=== PATIENT | female | born 1995 | race Two or more races ===

== ENCOUNTER 2020-12-03 02:10 | Inpatient (IN) | payer OTHER ==
[~2020-12-03] VITALS: Ht 152.4 cm; Wt 113.6 kg
[2020-12-03 04:22] LABS: BASOPHILS % (AUTO) 0.5 % (0.0-2.0); EOSINOPHILS % (AUTO) 0.5 % (1.0-6.0); HEMOGLOBIN 12.9 g/dL (12.0-16.0); LYMPHOCYTES # (AUTO) 3.3 K/uL (1.0-4.8); LYMPHOCYTES % (AUTO) 31.7 % (22.0-44.0); MEAN CORPUSCULAR HEMOGLOBIN 28.6 pg (26.0-34.0); MEAN CORPUSCULAR VOLUME 84 fL (80-100); MONOCYTES # (AUTO) 0.7 K/uL (0.1-1.0); MONOCYTES % (AUTO) 6.4 % (2.0-9.0); NEUTROPHILS # (AUTO) 6.4 K/uL (1.8-7.7); NEUTROPHILS % (AUTO) 60.9 % (40.0-70.0); PLATELET COUNT (AUTO) 362 K/uL (150-450); RED BLOOD CELL COUNT(AUTO) 4.53 MIL/uL (4.00-5.20); RED CELL DISTRIBUTION WIDTH 14.4 % (11.5-14.5)
[2020-12-03 04:23] LABS: COVID AG,FIA SOURCE NASOPHARYNGEAL
[2020-12-03 04:32] LABS: ANION GAP 10 mmol/L (8-16); CALCIUM, TOTAL 8.7 mg/dL (8.8-10.5); CARBON DIOXIDE 27 mmol/L (22-29); CHLORIDE 102 mmol/L (98-107); CREATININE 0.66 mg/dL (0.60-1.30); GLOMERULAR FILTR. RATE CALC > 60 mL/min (>60); GLUCOSE,RANDOM 101 mg/dL (70-110); POTASSIUM 3.8 mmol/L (3.5-5.1); SODIUM SERUM 139 mmol/L (136-145); UREA NITROGEN, BLOOD 10 mg/dL (7-18)
[2020-12-03 04:38] LABS: ALANINE AMINOTRANSFERASE 53 U/L (12-78); ALBUMIN 3.6 g/dL (3.4-5.0); ALKALINE PHOSPHATASE 66 U/L (46-116); ASPARTATE AMINOTRANSFERASE 31 U/L (15-37); BILIRUBIN,TOTAL 0.2 mg/dL (0.1-1.0); TOTAL PROTEIN, SERUM 7.8 g/dL (6.4-8.2)
[2020-12-03] MEDS ORDERED: ACETAMINOPHEN 325 MG TABLET PO PRN ×2 (04:45→05:00)
[2020-12-03] MEDS ORDERED: LORazepam 2 MG TABLET PO PRN (05:00)
[2020-12-03 05:23] LABS: AMPHET/METH SCREEN,URINE POSITIVE (NEGATIVE); BARBITURATE SCREEN, URINE NEGATIVE (NEGATIVE); BENZODIAZEPINES SCREEN,URINE POSITIVE (NEGATIVE); CANNABINOID SCREEN,URINE NEGATIVE (NEGATIVE); COCAINE SCREEN,URINE NEGATIVE (NEGATIVE); METHADONE SCREEN, URINE NEGATIVE (NEGATIVE); OPIATE SCREEN,URINE NEGATIVE (NEGATIVE); PHENCYCLIDINE SCREEN,URINE NEGATIVE (NEGATIVE)
[2020-12-03] MEDS: HEPARIN SODIUM,PORCINE 5,000 UNITS/ML VIAL SQ SCH ×3 (07:23→23:17)
[2020-12-03 09:54] VITALS: BP 121/67
[2020-12-03] MEDS ORDERED: LORazepam 1 MG TABLET PO PRN (10:00)
[2020-12-03] MEDS ORDERED: SODIUM CHLORIDE 0.9% 1,000 ML IV ONE (10:00)
[2020-12-03] MEDS: LORazepam 2 MG/ML VIAL IM PRN ×3 (11:53→20:45)
[2020-12-03] MEDS: ONDANSETRON HCL 4 MG/2 ML VIAL IVP PRN ×2 (11:55→20:45)
[2020-12-03 18:05] VITALS: BP 114/72
[2020-12-03 19:27] VITALS: BP 106/74
[2020-12-04 04:53] VITALS: BP 118/56
[2020-12-04 06:36] LABS: BASOPHILS % (AUTO) 0.5 % (0.0-2.0); EOSINOPHILS % (AUTO) 0.8 % (1.0-6.0); HEMATOCRIT 37.6 % (36-46); HEMOGLOBIN 12.8 g/dL (12.0-16.0); LYMPHOCYTES # (AUTO) 3.4 K/uL (1.0-4.8); LYMPHOCYTES % (AUTO) 39.5 % (22.0-44.0); MEAN CORPUSCULAR HEMOGLOBIN 28.6 pg (26.0-34.0); MEAN CORPUSCULAR VOLUME 84 fL (80-100); MONOCYTES # (AUTO) 0.6 K/uL (0.1-1.0); MONOCYTES % (AUTO) 6.5 % (2.0-9.0); NEUTROPHILS # (AUTO) 4.5 K/uL (1.8-7.7); NEUTROPHILS % (AUTO) 52.7 % (40.0-70.0); PLATELET COUNT (AUTO) 350 K/uL (150-450); RED BLOOD CELL COUNT(AUTO) 4.47 MIL/uL (4.00-5.20); RED CELL DISTRIBUTION WIDTH 14.5 % (11.5-14.5)
[2020-12-04 06:56] LABS: ANION GAP 10 mmol/L (8-16); CALCIUM, TOTAL 8.4 mg/dL (8.8-10.5); CARBON DIOXIDE 24 mmol/L (22-29); CHLORIDE 104 mmol/L (98-107); CREATININE 0.48 mg/dL (0.60-1.30); GLOMERULAR FILTR. RATE CALC > 60 mL/min (>60); GLUCOSE,RANDOM 87 mg/dL (70-110); POTASSIUM 3.9 mmol/L (3.5-5.1); SODIUM SERUM 138 mmol/L (136-145); UREA NITROGEN, BLOOD 11 mg/dL (7-18)
[2020-12-04] MEDS ORDERED: LORazepam 2 MG TABLET PO PRN (07:00)
[2020-12-04 08:00] VITALS: BP 104/55
[2020-12-04] MEDS: ONDANSETRON HCL 4 MG/2 ML VIAL IVP PRN (08:05)
[2020-12-04] MEDS: HEPARIN SODIUM,PORCINE 5,000 UNITS/ML VIAL SQ SCH ×3 (08:05→23:56)
[2020-12-04] MEDS ORDERED: LORazepam 2 MG TABLET PO SCH (09:00)
[2020-12-04] MEDS ORDERED: SERT-158 PO (09:56)
[2020-12-04] MEDS: LORazepam 2 MG/ML VIAL IM PRN (16:01)
[2020-12-04 20:41] VITALS: BP 114/78
[2020-12-04 23:41] VITALS: BP 113/75
[2020-12-05 04:26] VITALS: BP 109/71
[2020-12-05 07:47] VITALS: BP 117/56
[2020-12-05] MEDS: HEPARIN SODIUM,PORCINE 5,000 UNITS/ML VIAL SQ SCH ×2 (08:25→17:46)
[2020-12-05] MEDS: LORazepam 2 MG/ML VIAL IM PRN (12:34)
[2020-12-05] MEDS ORDERED: LORazepam 2 MG/ML VIAL IM PRN (13:00)
[2020-12-05 20:24] VITALS: BP 113/47
[2020-12-05 20:25] VITALS: BP 106/59
[2020-12-06] MEDS: HEPARIN SODIUM,PORCINE 5,000 UNITS/ML VIAL SQ SCH ×2 (00:04→08:06)
[2020-12-06] MEDS ORDERED: LORazepam 1 MG TABLET PO PRN (07:00)
[2020-12-06 08:37] VITALS: BP 109/66
[2020-12-06] MEDS ORDERED: LORazepam 1 MG TABLET PO SCH (09:00)
[2020-12-06 16:32] VITALS: BP 101/55
[2020-12-06 20:29] VITALS: BP 104/57
[2020-12-06 23:25] VITALS: BP 93/46
[2020-12-07 05:28] VITALS: BP 110/68
[2020-12-07] MEDS ORDERED: LORazepam 1 MG TABLET PO PRN (07:00)
[2020-12-07 08:09] VITALS: BP 110/56
[2020-12-07] MEDS ORDERED: ACET-2247 PO (10:01)
[2020-12-07 11:24] VITALS: BP 112/62
== END 2020-12-07 13:11 | DRG 897 ==
LOC: EMS 02:18 → 6S 08:55
PROVIDERS: ADMIT Internal Medicine; ATTEND Internal Medicine
DX: F13.239 Sedative, hypnotic or anxiolytic dependence with withdrawal, unspecified (principal); Z68.42 Body mass index [BMI] 45.0-49.9, adult; E44.0 Moderate protein-calorie malnutrition; F17.210 Nicotine dependence, cigarettes, uncomplicated; F11.23 Opioid dependence with withdrawal; E66.01 Morbid (severe) obesity due to excess calories; Z20.822 Contact with and (suspected) exposure to COVID-19; F15.10 Other stimulant abuse, uncomplicated; F41.9 Anxiety disorder, unspecified; F12.90 Cannabis use, unspecified, uncomplicated; Z71.51 Drug abuse counseling and surveillance of drug abuser; Z71.6 Tobacco abuse counseling; Z71.3 Dietary counseling and surveillance
CPT/HCPCS: 80048; 80053; 83735; 84702; 85025; 99285; J1644; J2060; J2405; J7030